=== PATIENT | female | born 1985 | race Caucasian/White ===

== ENCOUNTER 2021-02-25 14:40 | Outpatient (CLI) | payer OTHER, SELFPAY ==
[2021-02-25 15:03] LABS: Basophils Percent Auto 0.6 % (0.2-1.2); Eosinophils Absolute Auto 0.1 K/mm3 (0-0.3); Eosinophils Percent Auto 1.3 % (0-4.4); Hematocrit 39.6 % (37.0-47.0); Immature Granulocyte Absolute 0.01 K/mm3 (0.00-0.031); Immature Granulocyte Percent A 0.2 % (0-0.5); Lymphocytes Absolute Auto 1.53 K/mm3 (0.9-3.2); Lymphocytes Percent Auto 28.8 % (18.3-44.2); Mean Corpuscular HGB Conc 32.8 g/dl (32-36); Mean Corpuscular Hemoglobin 31.2 pg (26-34); Mean Platelet Volume 8.9 fl (7.4-10.4); Monocytes Absolute Auto 0.3 K/mm3 (0.1-0.6); Monocytes Percent Auto 6.4 % (2.6-8.5); Neutrophils Absolute Auto 3.3 K/mm3 (1.3-6.7); Neutrophils Percent Auto 62.7 % (45.5-73.1); Platelet Count Result 230 k/mm3 (150-375); Red Blood Count 4.17 M/mm3 (4.2-5.4); Red Cell Distribution Width 11.9 % (11.5-14.5); White Blood Count 5.3 K/mm3 (4.5-10.0)
== END 2021-02-25 14:41 | disposition home or self-care (01) ==
PROVIDERS: PCP Internal Medicine; Visit Provider Nurse Practitioner
DX: D72.818 Other decreased white blood cell count (principal)
CPT/HCPCS: 36415; 85025

== ENCOUNTER → 2021-06-02 14:11 | Outpatient (CLI) | payer OTHER, SELFPAY ==
--- NOTE | ~2021-06-02 | MMUS_ITS ---
EXAMINATION: MM diagnostic christiano BI w alexandr, US breast LT complete HISTORY: Left breast lump TECHNIQUE: ML, MLO and craniocaudal 3-D tomosynthesis images of both breasts were performed and synth etic 2-D images were generated. CAD analysis was submitted and interpreted. High resolution complete left breast ultrasound gluteal 4 quadrants and subareolar area was performed. COMPARISON: None BREAST PARENCHYMAL COMPOSITION: There is heterogeneously dense breast tissue, which may obscure small masses. FINDINGS: MAMMOGRAPHIC FINDINGS: No suspicious mass or architectural distortion, malignant calcification, skin thickening or retractio n is detected. ULTRASOUND: Ultrasound imaging of the left breast reveals no suspicious mass or shadowing, cyst or other signific ant finding. IMPRESSION: 1. No mammographic evidence of malignancy 2. Routine mammographic screening beginning at age 40 is recommended. BI-RADS Category 1: Negative Reviewed, dictated and finalized at location A. IMPRESSION: 1. No mammographic evidence of malignancy 2. Routine mammographic screening beginning at age 40 is recommended. BI-RADS Category 1: Negative
== END ==
PROVIDERS: Visit Provider Nurse Practitioner
DX: N63.20 Unspecified lump in the left breast, unspecified quadrant (principal)
CPT/HCPCS: 76641; 77062; 77066; G0279

== ENCOUNTER → 2021-11-05 12:16 | Outpatient (CLI) | payer OTHER, SELFPAY ==
--- NOTE | ~2021-11-05 | US_ITS ---
EXAMINATION: US thyroid DATE: 11/05/2021 12:36 INDICATION: Nontoxic single thyroid nodule. TECHNIQUE: Multiple ultrasound images of the thyroid were obtained. COMPARISON: Ultrasound 03/21/2019 FINDINGS: The right thyroid lobe measures 5.4 x 1.5 x 1.1 cm. The left thyroid lobe measures 4.9 x 1.1 x 1.2 c m. There are 3 nodules in the thyroid measuring up to 3 mm. IMPRESSION: 1. Small thyroid nodules, likely not clinically significant. No follow-up is needed. Reviewed, dictated and finalized at location A. IMPRESSION: 1. Small thyroid nodules, likely not clinically significant. No follow-up is ne eded.
== END ==
PROVIDERS: PCP Nurse Practitioner; Visit Provider Internal Medicine Endocrinology, Diabetes & Metabolism
DX: E04.2 Nontoxic multinodular goiter (principal)
CPT/HCPCS: 76536

== ENCOUNTER → 2022-11-29 10:52 | Outpatient (CLI) | payer OTHER, SELFPAY ==
--- NOTE | ~2022-11-29 | US_ITS ---
EXAMINATION: US transvaginal DATE: 11/29/2022 11:15 INDICATION: Pelvic pain TECHNIQUE: Multiple transabdominal and endovaginal sonographic images of the pelvis were obtained. COMPARISON: 09/19/2014 FINDINGS: Uterus: 9.4 x 4.3 x 5.4 cm. Endometrial complex measures 8 mm. Right Ovary: 3.2 x 2.3 x 3.6 cm. Vascular flow is present. 1.6 cm simple cyst versus dominant follicl e. Left Ovary: 3.3 x 2.1 x 2.8 cm. Vascular flow is present. There is no free fluid in the pelvis. IMPRESSION: Normal pelvic sonogram findings. Reviewed, dictated and finalized at location K.
== END ==
PROVIDERS: PCP Nurse Practitioner; Visit Provider Nurse Practitioner
DX: R10.2 Pelvic and perineal pain (principal)
CPT/HCPCS: 76830

== ENCOUNTER → 2022-12-01 13:26 | Outpatient (CLI) | payer OTHER, SELFPAY ==
--- NOTE | ~2022-12-01 | XR_ITS ---
EXAM: XR lumbar spine 2-3V DATE: 12/01/2022 13:43 HISTORY: no injury lbp with left hip pain for 5 months . COMPARISON: None available. FINDINGS: 5 nonrib-bearing lumbar-type vertebral bodies. Pedicles intact. Normal vertebral body alig nment. Vertebral body heights preserved. Mild disc space narrowing and marginal osteophytosis at L3-4 through L5-S1. Mild facet hypertrophy and sclerosis at L4-5 and L5-S1. Normal facets and posterior e lements. No fracture or dislocation. IMPRESSION: Mild lower lumbar degenerative disc disease. Mild lower lumbar facet arthropathy. Reviewed, dictated and finalized at location K. IMPRESSION: Mild lower lumbar degenerative disc disease. Mild lower lumbar face t arthropathy.
--- NOTE | ~2022-12-01 | XR_ITS ---
EXAM: XR hip LT min 2V DATE: 12/01/2022 13:43 HISTORY: no injury lbp with left hip pain for 5 months . COMPARISON: None available. FINDINGS: Normal mineralization. No fracture or dislocation. No lytic or blastic lesion. Joint space s are maintained. No erosion or periosteal change. Pelvic phleboliths. IMPRESSION: Unremarkable left hip radiograph findings. Reviewed, dictated and finalized at location K.
== END ==
PROVIDERS: PCP Nurse Practitioner; Visit Provider Nurse Practitioner
DX: M51.36 Other intervertebral disc degeneration, lumbar region (principal); M47.896 Other spondylosis, lumbar region; M25.552 Pain in left hip
CPT/HCPCS: 72100; 73502

== ENCOUNTER → 2022-12-08 12:42 | Outpatient (CLI) | payer OTHER, SELFPAY ==
--- NOTE | ~2022-12-08 | CT_ITS ---
Non-contrast CT scan of the Abdomen and Pelvis Clinical indication: Left lower quadrant pain Technique: 2.5 mm axial scans were obtained through the abdomen and pelvis without intravenous or or al contrast. Dose reduction technique was used on this scan by utilizing automated exposure control a nd iterative reconstruction technique. The dose-length product (DLP) was 439.68 mGy-cm. Findings: Images through the lung bases reveal no abnormalities. There are punctate nonobstructing bilateral renal stones. No definite ureteral stone or hydronephrosi s on either side. The liver, spleen, pancreas, gallbladder, and adrenals appear normal. There is no aortic aneurysm. There is no evidence of bowel obstruction. Images through the pelvis were performed. There is no evidence of ascites or lymphadenopathy. Urinary bladder unremarkable. No adnexal mass evident. No ascites. Impression: Punctate bilateral nonobstructing renal stones. Reviewed, dictated and finalized at [facility]. Impression: Punctate bilateral nonobstructing renal stones.
== END ==
PROVIDERS: PCP Nurse Practitioner; Visit Provider Nurse Practitioner
DX: R10.32 Left lower quadrant pain (principal); N20.0 Calculus of kidney
CPT/HCPCS: 74176

== ENCOUNTER 2023-11-23 12:05 | Outpatient (CLI) | payer OTHER, SELFPAY ==
--- NOTE | ~2023-11-23 | XR_ITS ---
EXAM: XR thoracic spine 2V DATE: 11/23/2023 12:16 HISTORY: no injury mid-lower anterior rib pain for 1.5 yrs . COMPARISON: None available. FINDINGS: Vertebral body alignment intact. Mild spinal asymmetry. Mild anterior wedge deformity at T 7. Remaining vertebral body heights preserved. No disc space narrowing. No traumatic malalignment or fracture. Visualized lung parenchyma is clear. IMPRESSION: Very mild anterior wedge deformity at T7, correlate for pain/tenderness. Reviewed, dictated and finalized at location K. IMPRESSION: Very mild anterior wedge deformity at T7, correlate for pain/tender ness.
== END 2023-11-23 12:06 ==
PROVIDERS: PCP Nurse Practitioner; Visit Provider Nurse Practitioner
DX: R07.81 Pleurodynia (principal)
CPT/HCPCS: 72070

== ENCOUNTER 2023-11-28 13:21 | Outpatient (CLI) | payer OTHER, SELFPAY ==
--- NOTE | ~2023-11-28 | MR_ITS ---
EXAMINATION: MR thoracic spine wo con DATE: 11/28/2023 14:11 INDICATION: Deformity dorsopathy, unspecified. Mid back pain. TECHNIQUE: Magnetic resonance imaging (MRI) of the thoracic spine was performed without intravenous c ontrast. COMPARISON: Thoracic spine radiographs 11/23/2023 FINDINGS: There is 3 degrees dextrocurvature of thoracic spine. There is mild chronic anterior wedgin g of T6-T8 vertebral bodies. There are lesions of increased T2-weighted signal intensity in T2, T3, a nd T6 vertebral bodies.There is mildly decreased disc height from T5-T6 through T7-T8. There are cent ral protrusions at T6-T7 and T7-T8 with mild central canal stenosis. The spinal cord signal intensity is normal. The conus medullaris is at T12-L1. IMPRESSION: 1. Mild thoracic spondylosis. 2. Lesions in T2, T3, and T6 vertebral bodies. 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 Consider bone scan to exclude metastatic disease. Reviewed, dictated and finalized at location E. IMPRESSION: 1. Mild thoracic spondylosis. 2. Lesions in T2, T3, and T6 vertebral bodies. 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 Consider bone scan to exclu de metastatic disease.
== END 2023-11-28 13:22 ==
PROVIDERS: PCP Nurse Practitioner; Visit Provider Nurse Practitioner
DX: M47.894 Other spondylosis, thoracic region (principal)
CPT/HCPCS: 72146

== ENCOUNTER 2025-02-26 09:05 | Outpatient (CLI) | payer OTHER, SELFPAY ==
[2025-03-20 16:11] VITALS: BMI 20.1
--- NOTE | 2025-03-20 16:11 | P.SLEEP_ITS ---
Sleep Study - Home Unattended Date of Study: 02/26/25 Ordering Provider: Anahy Muniz NP Interpreting Provider: Aspen Pan DO Home Sleep Study Type: Watch PAT Height: 1.68 m Weight: 56.699 kg Body Mass Index: 20.1 Neck Circumference (inches): 12.5 Mobile: 6 Reason for Sleep Study Excessive daytime sleepiness, unwanted behaviors during sleep Sleep History The patient is a 39-year-old female who had a sleep study ordered by her primary care for evaluation of sleep apnea. The patient admits to excessive daytime sleepiness as well as unwanted behaviors during sleep. She denies snoring loudly. She denies interruptions in breathing while asleep. She denies choking or gasping at night. She denies having trouble breathing on her back. She does have morning headaches. She does have a dry or sore mouth/throat in the morning. She denies nocturnal heartburn. She denies nocturia. She denies having difficulty falling asleep, but she does have difficulty staying asleep. She denies having difficulty returning to sleep if she wakes up throughout the night. She denies any hypnotic or sedative use. She denies feeling anxious about sleep. She does feel tired or sleepy during the day. She does feel tired in the morning. She denies having the urge to fall asleep during the day. She denies feeling drowsy while driving. She denies sleep paralysis, cataplexy, and hypnagogic/hypnopompic hallucinations. She does clench or grind her teeth. She denies kicking or jerking her legs excessively. She denies having a restless feeling in her legs. She goes to bed at 9 p.m. every night. It takes her 30 minutes to fall asleep. She gets 8 hours of sleep per night. Her sleep is somewhat restorative on days off. She denies taking any planned naps. She denies dream enactment behavior. She does sleepwalk. She consumes 1 to 2 cups of a caffeinated beverage per day. She denies tobacco and alcohol use. She does exercise 1 to 2 nights per week. [facility] Past Medical History Medical History Anxiety Headache, migraine Allergy IBS (irritable bowel syndrome) PCOS (polycystic ovarian syndrome) Mononucleosis Thyroid nodule Surgical History Surgical History H/O dilation and curettage Family History Family History Grandparent Diabetes mellitus Carcinoma of colon Father Bicuspid aortic valve Other Anxiety Cancer Cerebrovascular accident Depression Heart disease Hypertension Social History Social History Social History: caffeinei-coffee 2 cups daily Smoking status: Never smoker Alcohol intake: current Alcohol use details: occasionally Do You Feel Safe in your Home?: Yes Lack of Transportation: No Lack of Food: Never True Current Housing: I Have Housing Concerned About Future Housing: No Difficulty Paying Gas/Electric Bills: No Difficulty Paying for Meds: No Currently Unemployed: No Education: Master's Degree or Higher Difficulty w/ Childcare or Family Care: No Medications Home Medications ?Medication ?Instructions ?Recorded ?Confirmed ?Type cholecalciferol (vitamin D3) 125 125 mcg PO DAILY 10/01/22 01/29/25 History mcg (5,000 unit) capsule multivitamin (Multiple Vitamins 1 tablet PO DAILY 10/01/22 01/29/25 History tablet) mupirocin calcium 2 % topical cream 1 applic topical BID #15 grams 08/31/24 Rx sumatriptan succinate 50 mg tablet See Rx Instructions PO .COMPLEX #9 01/28/25 01/29/25 Rx (Imitrex) tabs sertraline 25 mg tablet See Rx Instructions .Route 02/04/25 Rx .COMPLEX #90 tabs linaclotide 145 mcg capsule See Rx Instructions .Route 03/13/25 Rx (Linzess) .COMPLEX #90 caps Sleep Procedure The sleep study was completed using [employer] a technically adequate device with seven channels: peripheral arterial tone, actigraphy, body position, snore, respiratory movement, pulse oximetry, sleep staging, and heart rate. Prior to using the device, the patient received verbal and written instructions for its application and was provided with the [employer] desk phone number for additional telephonic instruction with 24-hour availability of qualified personnel to answer questions. The study was scored using CMS guidelines. Sleep Architecture The total recording time is 9 hrs, 15 min. The total sleep time is 8 hrs, 24 min. Sleep latency is 15 minutes. REM latency is 83 minutes. The patient had 8 episodes of waking. Sleep architecture shows 15.3% deep sleep, 61.2% light sleep, and (as % Total Sleep Time) showed NREM (Light 61.2%; Deep 15.3%), and a 23.6% stage REM. The patient spent 44.3% of total sleep time in the supine position. Sleep efficiency was 90.81. Respiratory Analysis The overall AHI (pAHI 4%:) is 0.6. The overall AHI (pAHI 3%:) is 2.2. The central AHI is 0.1. The AHI was 1.7 in NREM and 3.6 in REM sleep. The AHI was 1.6 in Supine and 2.6 in Non-supine sleep. Percent of Connor Funez respirations is 0.0. Oximetry Data The oxygen desaturation index (HARRY 4%:) is 0.7. The mean saturation is 95%, and the lowest saturation is 87%. Time spent with saturation < 88% is 0.0 minutes. Snoring Profile Snoring average intensity is 41 dB. The patient snored above 45 decibels for 20.7 minutes, 4.1% of sleep time. Cardiac Profile The average pulse rate is 64 beats per minutes. The lowest pulse rate is 47 bpm. The highest pulse rate reported is 104 bpm. Atrial fibrillation was not detected. Premature beats occur <0.1 per minute. Assessment and Plan Assessment and Plan (1) Sleep disturbance: Code(s): G47.9 - Sleep disorder, unspecified Status: Acute Assessment and Plan: The patient had an overall AHI of 0.6 with desaturation down to 87%. This is not consistent with sleep-disordered breathing. Data The data obtained during this sleep study is adequate for interpretation. Certification This sleep study has been reviewed by a board certified sleep medicine physician.
== END 2025-02-28 11:40 | disposition home or self-care (01) ==
PROVIDERS: PCP Nurse Practitioner; Visit Provider Nurse Practitioner
DX: R40.0 Somnolence (principal); G47.9 Sleep disorder, unspecified
CPT/HCPCS: 95800